=== PATIENT | male | born 1975 | race Caucasian/White ===

== ENCOUNTER → 2016-12-26 | Outpatient (CLI) | payer MEDICARE, MEDICAID | END | disposition disaster alternative care site (69) | LOC: GMED 17:27 → EDSTATUS 17:30 → GRAD 17:31 | DX: R06.02 Shortness of breath (principal); D86.9 Sarcoidosis, unspecified; J98.4 Other disorders of lung; R05 Cough; R07.89 Other chest pain; R79.1 Abnormal coagulation profile; R59.1 Generalized enlarged lymph nodes | CPT/HCPCS: Q9967 ==